=== PATIENT | female | born 1970 | race African-American/Black ===

== ENCOUNTER 2016-07-02 21:53 | Emergency (ER) | payer MEDICARE, OTHER ==
[2016-07-02] MEDS ORDERED: predniSONE 20 MG TAB ONE (22:19)
--- NOTE | 2016-07-03 00:41 | ERRECORD ---
[facility] EMERGENCY RECORD PAST MEDICAL HISTORY (22:09 KSPL) MEDICAL HISTORY: Flu vaccine not up to date, Tetanus immunization up to date, Pneumococcal vaccine not up to date, Notes: high cholesterol, , Past medical history includes history of hypertension. Past medical history is not significant. migraine and chest pain. Stress test performed last year with 20% blockage per heart cath. FEMALE SURGICAL HISTORY: Surgical history of cholecystectomy, laparoscopic, Surgical history of hysterectomy, lung sx 1999, left knee sx, hernia repair. RT TOE SX, LT BREAST LUMPECTOMY. RT CARPAL TUNNEL SURGERY. LEFT WRIST CYST REMOVAL. PSYCHIATRIC HISTORY: Psychiatric history includes, bipolar disorder, MANIC DEPRESSION.ANXIETY. PANIC ATTACKS. SOCIAL HISTORY: Patient denies alcohol use, Patient is a former drug user, Patient is a former tobacco user, smoked cigarettes, Patient quit smoking in the past year. FAMILY HISTORY: Maternal history of diabetes, Type II, Maternal history of hypertension. Family istory is not significant. KNOWN ALLERGIES traMADol CURRENT MEDICATIONS (22:09 KSPL) diltiazem HCl: CAPSULE, EXT RELEASE 24 HR : Strength - 120 mg : ORAL Patient Dose: unk mg Oral once a day. Xanax: TABLET : Strength - 1 mg : ORAL Patient Dose: unk mg Oral As Needed. Dexilant: CAPSULE, DELAYED RELEASE, BIPHASIC : Strength - 30 mg : ORAL Patient Dose: unk mg Oral. aspirin: TABLET : Strength - 81 mg : ORAL Patient Dose: unk mg Oral. Darvon: CAPSULE : Strength - 65 mg : ORAL Patient Dose: unk mg Oral once a day. Lipitor: TABLET : Strength - 10 mg : ORAL Patient Dose: unk mg. traZODone: TABLET : Strength - 100 mg : ORAL Patient Dose: unk. VITAL SIGNS (22:05 KSPL) VITAL SIGNS: BP: 126/101, Pulse: 88, Resp: 18, Temp: 98.1 (Oral), Pain: 8, O2 sat: 96 on Room Air, Time: 07/02/2016 22:05. &a-1R&a+25V*p+0X*[id number]*c202B*c15G*c2P*p-0X&a-25V&a+1R Name: Angelina Monroy Jordi : 1970 F45 MedRec: [id number] AcctNum: [id number] Prepared: [place] Jul 02, 2016 22:25 by Interface Page 1 of 2 pMD [facility] EMERGENCY RECORD MEDICATION ADMINISTRATION SUMMARY Drug Name: Atarax, Dose Ordered: 25 mg, Route: Oral, Status: Given, Time: 22:22 07/02/2016, Drug Name: predniSONE oral, Dose Ordered: 60 mg, Route: Oral, Status: Given, Time: 22:07/02/2016, Detailed record available in Medication Service section. PROBLEM LIST No recorded problems DIAGNOSIS (22:10 JPIP) FINAL: PRIMARY: insect bite local reaction left upper arm. PRESCRIPTION (22:09 JPIP) Atarax: TABLET : 25 mg : ORAL : Quantity: 1 Unit: tab(s) Route: ORAL Schedule: 1 to 2 times a day Dispense: 20 May substitute. Refills: No Refills . NOTES: as needed for itching No refills. DISPOSITION PATIENT: Disposition Type: Discharge, Disposition: *Discharge Home, Condition: Good. (22:10 JPIP) Patient left the department. (22:23 KSPL) Bueno: JPIP=DO Siegel Joseph KSPL=FAUSTINO Rios, Christina &a-1R&a+25V*p+0X*[id number]*c202B*c15G*c2P*p-0X&a-25V&a+1R Name: Angelina Monroy : 1970 F45 MedRec: [id number] AcctNum: [id number] Prepared: [place] Jul 02, 2016 22:25 by Interface Page 2 of 2 pMD MTDD
--- NOTE | 2016-07-03 00:53 | PICIS ---
[facility] EMERGENCY RECORD TRIAGE (SunJul 02, 2016 22:07 KSPL) TRIAGE NOTES: welt to L upper arm, burning sensation, awoke pt from sleep. (SunJul 02, 2016 22:07 KSPL) PATIENT: NAME: Angelina Monroy, AGE: 45, GENDER: female, : Sun1970, TIME OF GREET: SunJul 02, 2016 21:54, PREFERRED LANGUAGE: Maltese, ETHNICITY: Not or , ECODE BILLING MAP: [facility], SSN: [id number], Zip Code: [address], KG WEIGHT: 87.09, , , PERSON ID: [id number], PAYMENT: X Medicare, PCP: MD Iqbal Kyle. ([place] Jul 02, 2016 22:07 KSPL) PHONE: . (22:15) COMPLAINT: bite. ([place] Jul 02, 2016 22:07 KSPL) ADMISSION: URGENCY: 5 Fast Track, ADMISSION SOURCE: Home, TRANSPORT: CAR, BED: TRIAGE. ([place] Jul 02, 2016 22:07 KSPL) SIRS SCORING: Heart Rate 55-109 (0), Temp range 96.8-101.1 (0), respiratory rate 12-24 (0), Mental Status altered: no (0), Infection or Suspected Infection: No. (22:09 KSPL) TRIAGE SCREENING: Patient denies suicidal ideation, Patient denies presence of domestic violence. (22:09 KSPL) TREATMENTS IN PROGRESS: Treatments given Prehospital: none. (22:09 KSPL) PROVIDERS: TRIAGE NURSE: Christina Rios RN. ([place] Jul 02, 2016 22:07 KSPL) VITAL SIGNS: BP 126/101, Pulse 88, Resp 18, Temp 98.1, (Oral), Pain 8, O2 Sat 96, on Room Air, Time 07/02/2016 22:05. (22:05 KSPL) PREVIOUS VISIT ALLERGIES: acetaminophen-codeine, traMADol. ([place] Jul 02, 2016 22:07 KSPL) acetaminophen-codeine, traMADol. (22:09 KSPL) KNOWN ALLERGIES traMADol CURRENT MEDICATIONS (22:09 KSPL) diltiazem HCl: CAPSULE, EXT RELEASE 24 HR : Strength - 120 mg : ORAL Patient Dose: unk mg Oral once a day. Xanax: TABLET : Strength - 1 mg : ORAL Patient Dose: unk mg Oral As Needed. Dexilant: CAPSULE, DELAYED RELEASE, BIPHASIC : Strength - 30 mg : ORAL Patient Dose: unk mg Oral. aspirin: TABLET : Strength - 81 mg : ORAL Patient Dose: unk mg Oral. Darvon: CAPSULE : Strength - 65 mg : ORAL Patient Dose: unk mg Oral once a day. Lipitor: TABLET : Strength - 10 mg : ORAL &a-1R&a+25V*p+0X*r5080Y*c202B*c15G*c2P*p-0X&a-25V&a+1R Name: Angelina Monroy : 1970 F45 MedRec: [id number] AcctNum: [id number] Prepared: [place] Jul 02, 2016 22:31 by Interface Page 1 of 4 pMD [facility] EMERGENCY RECORD Patient Dose: unk mg. traZODone: TABLET : Strength - 100 mg : ORAL Patient Dose: unk. VITAL SIGNS (22:05 KSPL) VITAL SIGNS: BP: 126/101, Pulse: 88, Resp: 18, Temp: 98.1 (Oral), Pain: 8, O2 sat: 96 on Room Air, Time: 07/02/2016 22:05. NURSING ASSESSMENT: SKIN (22:09 KSPL) CONSTITUTIONAL: Complex assessment performed, Patient arrives ambulatory, Gait steady, History obtained from patient, Patient appears comfortable, Patient cooperative, Patient alert, Oriented to person, place and time, Skin warm, Skin dry, Skin normal in color, Mucous membranes pink, Mucous membranes moist, Patient is well-groomed, Patient complains of bite. PAIN: burning pain, Onset of pain 07/02/2016 21:09, on a scale 0-10 patient rates pain as 8, Nothing has been tried to alleviate the pain. SKIN: Notes: Welt to L upper arm. SAFETY: Side rails up, Cart/Stretcher in lowest position, Family at bedside, Call light within reach, Hospital ID band on, Patient in view of the nursing station. NURSING PROCEDURE: DISCHARGE NOTE (22:24 KSPL) DISCHARGE: Patient discharged to home, ambulating without assistance, family driving, accompanied by //partner, Summary of Care printed/ provided, Patient requested and was provided an electronic copy of Discharge Instructions, Transition record given to patient, Discharge instructions given to patient, Simple or moderate discharge teaching performed, Prescriptions given and instructions on side effects given, Name of prescription(s) given: atarax, Medication reconciliation form given, Above person(s) verbalized understanding of discharge instructions and follow-up care, Patient treated and evaluated by physician. BELONGINGS: Belongings and valuables with patient at time of discharge include:, Belongings remain with patient, Valuables remain with patient. SAFETY: Side rails up, Cart/Stretcher in lowest position, Family at bedside, Call light within reach, Hospital ID band on, Patient in view of the nursing station. MEDICATION ADMINISTRATION SUMMARY Drug Name: Atarax, Dose Ordered: 25 mg, Route: Oral, Status: Given, Time: 22:07/02/2016, Drug Name: predniSONE oral, Dose Ordered: 60 mg, Route: Oral, Status: Given, Time: 22:07/02/2016, Detailed record available in Medication Service section. &a-1R&a+25V*p+0X*[id number]*c202B*c15G*c2P*p-0X&a-25V&a+1R Name: Angelina Monroy : 1970 F45 MedRec: [id number] AcctNum: [id number] Prepared: [place] Jul 02, 2016 22:31 by Interface Page 2 of 4 pMD [facility] EMERGENCY RECORD MEDICATION SERVICE (22: [facility]) Atarax: Order: Atarax (hydroxyzine HCl) - Dose: 25 mg : Oral Schedule: Now Ordered by: Nikita Siegel DO Entered by: DO [place] Gleason Jul 02, 2016 22:08 , Acknowledged by: FAUSTINO Troncoso Jul 02, 2016 22:18 Documented as given by: FAUSTINO Troncoso Jul 02, 2016 22:22 Patient, Medication, Dose, Route and Time verified prior to administration. Amount given: 25 mg, Site: Medication administered P.O., Patient appears Awake and alert- acceptable, Correct patient, time, route, dose and medication confirmed prior to administration, Patient advised of actions and side-effects prior to administration, Allergies confirmed and medications reviewed prior to administration, Patient in position of comfort, Side rails up, Cart in lowest position, Family at bedside, Call light in reach. predniSONE oral: Order: predniSONE oral (prednisone) - Dose: 60 mg : Oral Schedule: Now Ordered by: Nikita Siegel DO Entered by: DO Socorro Gleason Jul 02, 2016 22:09 , Acknowledged by: FAUSTINO Troncoso Jul 02, 2016 22:18 Documented as given by: FAUSTINO Troncoso Jul 02, 2016 22:22 Patient, Medication, Dose, Route and Time verified prior to administration. Amount given: 60 mg, Site: Medication administered P.O., Patient appears Awake and alert- acceptable, Correct patient, time, route, dose and medication confirmed prior to administration, Patient advised of actions and side-effects prior to administration, Allergies confirmed and medications reviewed prior to administration, Patient in position of comfort, Side rails up, Cart in lowest position, Family at bedside, Call light in reach. PAST MEDICAL HISTORY (22:09 KSPL) MEDICAL HISTORY: Flu vaccine not up to date, Tetanus immunization up to date, Pneumococcal vaccine not up to date, Notes: high cholesterol, , Past medical history includes history of hypertension. Past medical history is not significant. migraine and chest pain. Stress test performed last year with 20% blockage per heart cath. FEMALE SURGICAL HISTORY: Surgical history of cholecystectomy, laparoscopic, Surgical history of hysterectomy, lung sx 1999, left knee sx, hernia repair. RT TOE SX, LT BREAST LUMPECTOMY. RT CARPAL TUNNEL SURGERY. LEFT WRIST CYST REMOVAL. PSYCHIATRIC HISTORY: Psychiatric history includes, bipolar disorder, MANIC DEPRESSION.ANXIETY. PANIC ATTACKS. SOCIAL HISTORY: Patient denies alcohol use, Patient is a former drug user, Patient is a former tobacco user, smoked cigarettes, Patient quit smoking in the past year. &a-1R&a+25V*p+0X*[id number]*c202B*c15G*c2P*p-0X&a-25V&a+1R Name: Angelina Monroy : 1970 F45 MedRec: [id number] AcctNum: [id number] Prepared: [place] Jul 02, 2016 22:31 by Interface Page 3 of 4 pMD [facility] EMERGENCY RECORD FAMILY HISTORY: Maternal history of diabetes, Type II, Maternal history of hypertension. Family istory is not significant. EVENTS TRANSFER: Triage to Emergency Triage. (22:07 KSPL) Emergency Triage to Emergency Room -03. (22:08 KSPL) Removed from Emergency Emergency Room -03. (22:23 KSPL) PROBLEM LIST No recorded problems DIAGNOSIS (22:10 JPIP) FINAL: PRIMARY: insect bite local reaction left upper arm. DISPOSITION PATIENT: Disposition Type: Discharge, Disposition: *Discharge Home, Condition: Good. (22:10 JPIP) Patient left the department. (22:23 KSPL) INSTRUCTION (22:09 JPIP) DISCHARGE: ALLERGIC REACTION, INSECT (LOCAL). FOLLOWUP: MD Farida, [facility], [address] [place] [address], . SPECIAL: Follow up with Primary Care Physician within 72 hours Return to the Emergency Department for increased symptoms problems or concerns. PRESCRIPTION (22:09 JPIP) Atarax: TABLET : 25 mg : ORAL : Quantity: 1 Unit: tab(s) Route: ORAL Schedule: 1 to 2 times a day Dispense: 20 May substitute. Refills: No Refills . NOTES: as needed for itching No refills. IMAGING (22:26 KSPL) *DISCHARGE INSTRUCTIONS RECEIPT: Image captured from scanner. *SUPPLY CHARGE SHEET: Image captured from scanner. Bueno: DANIELE=DO Siegel Joseph KSPL=FAUSTINO Rios, Christina &a-1R&a+25V*p+0X*[id number]*c202B*c15G*c2P*p-0X&a-25V&a+1R Name: Angelina Monroy : 1970 F45 MedRec: [id number] AcctNum: [id number] Prepared: [place] Jul 02, 2016 22:31 by Interface Page 4 of 4 pMD MTDD
== END 2016-07-02 22:24 | disposition home or self-care (01) ==
LOC: BURERS 21:53
DX: S40.862A Insect bite (nonvenomous) of left upper arm, initial encounter (principal); I10 Essential (primary) hypertension
CPT/HCPCS: 99282; J7506

== ENCOUNTER 2016-07-03 10:45 | Outpatient (CLI) | payer MEDICARE, MEDICAID ==
[2016-07-03 13:06] LABS: ALT (SGPT) 18 U/L (0-55); AST (SGOT) 14 U/L (5-34); Alkaline Phosphatase 81 U/L (40-150); Anion Gap 16 mmol/L (10-20); BUN (Urea Nitrogen) 15 mg/dL (7.0-18.7); Bilirubin, Total 0.3 mg/dL (0.2-1.2); Calc. Creatinine Clearance 0 mL/min (70-130); Calcium 10.1 mg/dL (7.8-10.44); Carbon Dioxide 22 mmol/L (22-29); Chloride 109 mmol/L (98-107); Estimated GFR-MDRD 84; Globulin 3.1 g/dL (2.4-3.5); LDL Cholesterol, Calculated 108 mg/dL; Protein, Total 7.9 g/dL (6.0-8.3)
[2016-07-03 13:33] LABS: #Lymphocytes 1.2 thou/uL (1.20-3.40); #Monocytes 0.1 thou/uL (0.11-0.59); #Neutrophils 6.4 thou/uL (1.40-6.50); %Basophils 0.5 % (0.0-1.0); %Monocytes 1.1 % (0.0-10.0); Hematocrit 39.7 % (36.0-47.0); Mean Platelet Volume 5.8 fL (7.4-10.4); Red Blood Cell (RBC) Count 4.64 mill/uL (4.20-5.40); White Blood Cell (WBC) Count 7.7 thou/uL (4.8-10.8)
[2016-07-03 14:14] LABS: Hemoglobin A1c 5.7 % (4.0-6.0)
== END 2016-07-03 10:46 | disposition home or self-care (01) ==
LOC: HPCALD 10:45
PROVIDERS: ATTEND Family Medicine
DX: Z11.4 Encounter for screening for human immunodeficiency virus [HIV] (principal); R73.9 Hyperglycemia, unspecified; I10 Essential (primary) hypertension; E78.5 Hyperlipidemia, unspecified; R53.83 Other fatigue; E55.9 Vitamin D deficiency, unspecified
CPT/HCPCS: 36415; 80053; 80061; 82306; 82607; 83036; 84443; 85025; 87389

== ENCOUNTER 2016-07-04 11:51 | Outpatient (CLI) | payer MEDICARE, OTHER ==
[2016-07-04 18:18] LABS: Free T3 2.51 pg/mL (1.71-3.71)
== END 2016-07-04 11:52 | disposition home or self-care (01) ==
LOC: HPCALD 11:51
PROVIDERS: ATTEND Family Medicine
DX: R53.83 Other fatigue (principal)
CPT/HCPCS: 84439; 84481

== ENCOUNTER 2016-08-06 09:10 | Emergency (ER) | payer MEDICARE | END 2016-08-06 09:40 | disposition home or self-care (01) | LOC: BURERS 09:10 | DX: B34.9 Viral infection, unspecified (principal); E78.00 Pure hypercholesterolemia, unspecified; I10 Essential (primary) hypertension; F31.9 Bipolar disorder, unspecified; F41.9 Anxiety disorder, unspecified; Z79.899 Other long term (current) drug therapy; Z79.82 Long term (current) use of aspirin; Z87.891 Personal history of nicotine dependence | CPT/HCPCS: 99283 ==

== ENCOUNTER 2016-08-26 09:39 | Emergency (ER) | payer MEDICARE, OTHER ==
[2016-08-26 10:28] LABS: CKMB 0.5 ng/mL (0-6.6); Troponin I Less than 0.010 ng/mL (< 0.028)
[2016-08-26 10:29] LABS: Anion Gap 13 mmol/L (10-20); BUN (Urea Nitrogen) 17 mg/dL (7.0-18.7); Calc. Creatinine Clearance 0 mL/min (70-130); Carbon Dioxide 26 mmol/L (22-29); Chloride 105 mmol/L (98-107); Estimated GFR-MDRD 83; Glucose 163 mg/dL (70-105); Potassium 3.1 mmol/L (3.5-5.1); Sodium 141 mmol/L (136-145)
[2016-08-26 10:37] LABS: Hemoglobin 13.4 g/dL (12.0-16.0); Mean Corpuscular HGB CONC 33.3 g/dL (32.0-36.0); Mean Corpuscular Hemoglobin 27.6 pg (27.0-31.0); Mean Platelet Volume 7.2 fL (7.4-10.4); Platelet Count 329 thou/uL (130-400); RBC Distribution Width 12.8 % (11.5-14.5); Red Blood Cell (RBC) Count 4.84 mill/uL (4.20-5.40); White Blood Cell (WBC) Count 11.9 thou/uL (4.8-10.8)
[2016-08-26 10:39] LABS: Band 3 % (5-11); Eosinophils 1 % (0-10); Lymphocytes 44 % (21-51); MDiff Complete? YES; Monocytes 6 % (0-10); Neutrophil 45 % (42-75); PLT Morphology Comment Appears Adequate; RBC Morphology Normal
[2016-08-26] MEDS ORDERED: Azithromycin 250 MG TAB ONE (11:00)
[2016-08-26] MEDS ORDERED: Potassium Chloride 20 MEQ TAB ONE (11:00)
--- NOTE | 2016-08-26 13:29 | RAD ---
PA AND LATERAL CHEST: COMPARISON: 11/17/15 study. HISTORY: Chest pain and cough. FINDINGS: Heart size and mediastinum within normal limits. Lungs are clear of any focal infiltrative process. IMPRESSION: No active intrathoracic disease. POS: [facility]
== END 2016-08-26 11:03 | disposition home or self-care (01) ==
LOC: BURERS 09:39
DX: J20.9 Acute bronchitis, unspecified (principal); E78.00 Pure hypercholesterolemia, unspecified; I10 Essential (primary) hypertension; F31.9 Bipolar disorder, unspecified; Z87.891 Personal history of nicotine dependence; Z79.82 Long term (current) use of aspirin; Z79.899 Other long term (current) drug therapy
CPT/HCPCS: 36415; 71020; 80048; 82553; 84484; 85025; 93005

== ENCOUNTER 2016-08-31 09:19 | Outpatient (CLI) | payer MEDICARE, OTHER ==
[2016-08-31 11:53] LABS: Anion Gap 13 mmol/L (10-20); BUN (Urea Nitrogen) 12 mg/dL (7.0-18.7); Calc. Creatinine Clearance 0 mL/min (70-130); Calcium 9.7 mg/dL (7.8-10.44); Carbon Dioxide 28 mmol/L (22-29); Chloride 105 mmol/L (98-107); Estimated GFR-MDRD 79; Glucose 100 mg/dL (70-105); Potassium 4.5 mmol/L (3.5-5.1); Sodium 141 mmol/L (136-145)
== END 2016-08-31 09:20 | disposition home or self-care (01) ==
LOC: HPCALD 09:19
PROVIDERS: ATTEND Family Medicine
DX: E87.6 Hypokalemia (principal); E55.9 Vitamin D deficiency, unspecified
CPT/HCPCS: 36415; 80048; 82306

== ENCOUNTER 2016-10-18 20:31 | Emergency (ER) | payer MEDICARE, OTHER ==
--- NOTE | 2016-10-18 22:06 | RAD ---
LEFT ANKLE THREE VIEWS 10/18/16 Mild lateral swelling is present. No underlying fracture was appreciated. The ankle joint appears in tact. IMPRESSION: No acute findings. POS: HOME
== END 2016-10-18 21:08 | disposition home or self-care (01) ==
LOC: BURERS 20:31
DX: S93.402A Sprain of unspecified ligament of left ankle, initial encounter (principal); I10 Essential (primary) hypertension; F31.9 Bipolar disorder, unspecified; Z87.891 Personal history of nicotine dependence; X50.1XXA Overexertion from prolonged static or awkward postures, initial encounter

== ENCOUNTER 2017-01-18 10:17 | Outpatient (CLI) | payer MEDICAID, MEDICARE, OTHER ==
[2017-01-18 10:41] LABS: #Basophils 0.1 thou/uL (0.0-0.2); #Eosinphils 0.1 thou/uL (0.0-0.7); #Lymphocytes 3.8 thou/uL (1.20-3.40); #Monocytes 0.6 thou/uL (0.11-0.59); #Neutrophils 3.9 thou/uL (1.40-6.50); %Eosinophils 1.2 % (0.0-10.0); %Lymphocytes 45.4 % (21.0-51.0); %Monocytes 6.5 % (0.0-10.0); %Neutrophils 45.9 % (42.0-75.0); Hemoglobin 12.9 g/dL (12.0-16.0); Mean Corpuscular HGB CONC 33.7 g/dL (32.0-36.0); Mean Platelet Volume 6.8 fL (7.4-10.4); Platelet Count 336 thou/uL (130-400); RBC Distribution Width 14.7 % (11.5-14.5); Red Blood Cell (RBC) Count 4.62 mill/uL (4.20-5.40); White Blood Cell (WBC) Count 8.4 thou/uL (4.8-10.8)
[2017-01-18 10:56] LABS: ALT (SGPT) 37 U/L (8-55); AST (SGOT) 23 U/L (5-34); Albumin 4.1 g/dL (3.5-5.0); Alkaline Phosphatase 85 U/L (40-150); Anion Gap 12 mmol/L (10-20); BUN (Urea Nitrogen) 11 mg/dL (7.0-18.7); Bilirubin, Total 0.2 mg/dL (0.2-1.2); Calc. Creatinine Clearance 0 mL/min (70-130); Calcium 9.1 mg/dL (7.8-10.44); Cardiac Risk 3.5 (Less than 4.5); Chloride 110 mmol/L (98-107); Cholesterol 172 mg/dl (< 200 Desired); Estimated GFR-MDRD 90; Globulin 2.9 g/dL (2.4-3.5); Glucose 111 mg/dL (70-105); HDL Cholesterol 49 mg/dL (>60 Neg Risk); LDL Cholesterol, Calculated 103 mg/dL; Potassium 4.6 mmol/L (3.5-5.1); Sodium 144 mmol/L (136-145); Triglycerides 99 mg/dL (Less than 150)
[2017-01-18 13:01] LABS: Carbon Dioxide 21 mmol/L (22-29)
== END 2017-01-18 10:18 | disposition home or self-care (01) ==
LOC: HPCALD 10:17
PROVIDERS: ATTEND Family Medicine
DX: E78.00 Pure hypercholesterolemia, unspecified (principal); I10 Essential (primary) hypertension
CPT/HCPCS: 36415; 80053; 80061; 85025

== ENCOUNTER 2017-04-15 15:16 | Emergency (ER) | payer MEDICARE, OTHER ==
[2017-04-15 15:52] LABS: #Basophils 0.1 thou/uL (0.0-0.2); #Eosinphils 0.1 thou/uL (0.0-0.7); #Lymphocytes 3.3 thou/uL (1.20-3.40); #Monocytes 0.5 thou/uL (0.11-0.59); #Neutrophils 3.7 thou/uL (1.40-6.50); %Basophils 1.7 % (0.0-1.0); %Eosinophils 1.1 % (0.0-10.0); %Lymphocytes 42.7 % (21.0-51.0); %Monocytes 6.3 % (0.0-10.0); %Neutrophils 48.2 % (42.0-75.0); Hemoglobin 12.1 g/dL (12.0-16.0); Mean Corpuscular HGB CONC 32.2 g/dL (32.0-36.0); Mean Corpuscular Hemoglobin 27.5 pg (27.0-31.0); Mean Corpuscular Volume 85.5 fl (81.0-99.0); Mean Platelet Volume 6.6 fL (7.4-10.4); Platelet Count 281 thou/uL (130-400); RBC Distribution Width 13.9 % (11.5-14.5); White Blood Cell (WBC) Count 7.7 thou/uL (4.8-10.8)
--- NOTE | 2017-04-15 15:59 | RAD ---
CHEST ONE VIEW: History: Chest pain. Comparison: 12-07-14 FINDINGS: Cardiac silhouette is magnified by projection. Pulmonary vasculature is unremarkable. Mediastinum is midline. There is no lobar consolidation or evidence of pneumothorax. sandblaster supervisor leads overlie the chest. IMPRESSION: 1. No active cardiopulmonary abnormalities are demonstrated. POS: [facility]
[2017-04-15 16:00] LABS: INR-International Normal Ratio 0.9; PTT 28.2 SEC (22.9-36.1); Prothrombin Time 12.5 SEC (12.0-14.7)
[2017-04-15 16:09] LABS: ALT (SGPT) 24 U/L (8-55); AST (SGOT) 20 U/L (5-34); Albumin 4.2 g/dL (3.5-5.0); Alkaline Phosphatase 87 U/L (40-150); Anion Gap 15 mmol/L (10-20); BUN (Urea Nitrogen) 16 mg/dL (7.0-18.7); Bilirubin, Total 0.3 mg/dL (0.2-1.2); Calc. Creatinine Clearance 0 mL/min (70-130); Calcium 9.6 mg/dL (7.8-10.44); Carbon Dioxide 23 mmol/L (22-29); Chloride 107 mmol/L (98-107); Estimated GFR-MDRD 90; Globulin 3.3 g/dL (2.4-3.5); Glucose 108 mg/dL (70-105); Potassium 3.8 mmol/L (3.5-5.1); Protein, Total 7.5 g/dL (6.0-8.3); Sodium 141 mmol/L (136-145)
[2017-04-15 16:11] LABS: CKMB 0.9 ng/mL (0-6.6)
[2017-04-15] MEDS ORDERED: Ketorolac Tromethamine 30 MG/ML VIAL ONE (17:09)
[2017-04-15 18:39] LABS: Troponin I 0.012 ng/mL (< 0.028)
== END 2017-04-15 19:10 | disposition home or self-care (01) ==
LOC: BURERS 15:16
DX: S46.912A Strain of unspecified muscle, fascia and tendon at shoulder and upper arm level, left arm, initial encounter (principal); I10 Essential (primary) hypertension; F31.9 Bipolar disorder, unspecified; Z87.891 Personal history of nicotine dependence; Z79.899 Other long term (current) drug therapy; Z79.82 Long term (current) use of aspirin; X50.9XXA Other and unspecified overexertion or strenuous movements or postures, initial encounter
CPT/HCPCS: 71010; 80053; 82553; 84484; 85025; 85610; 85730; 93005; 94760; 96374; 99406; J1885

== ENCOUNTER 2017-06-08 08:44 | Outpatient (CLI) | payer MEDICARE, OTHER ==
--- NOTE | 2017-06-12 08:07 | ULT ---
ULTRASOUND ABDOMEN: HISTORY: R19.0 (abdominal swelling). COMPARISON: None. TECHNIQUE: Real-time Cha-scale color Doppler and spectral analysis of the abdomen is performed. FINDINGS: The pancreas is not swell seen. The liver measures 17 cm in length. The portal vein is patent. The common bile duct measures 7 mm. The right kidney measures 10.7 x 5.3 x 4.9 cm, with what appears to be a prominent column of Burke i nterpolar right kidney. This can be seen on the CT examination from 2014. The spleen measures 10 cm in length. The left kidney measures 10.2 x 5.5 x 5.1 cm. The gallbladder has been removed. The visualized portions of the aorta and IVC are unremarkable. IMPRESSION: 1. Mild increased hepatic echotexture, which can be seen with steatosis or hepatocellular disease. 2. Likely a column of Burke in the interpolar right kidney and not a mass. A follow-up examination in six months is recommended. POS: [facility]
== END 2017-06-08 08:45 | disposition home or self-care (01) ==
LOC: BURULT 08:44
PROVIDERS: ATTEND Family Medicine
DX: R19.00 Intra-abdominal and pelvic swelling, mass and lump, unspecified site (principal)
CPT/HCPCS: 76700

== ENCOUNTER 2017-12-06 10:40 | Emergency (ER) | payer MEDICARE, OTHER ==
[2017-12-06] MEDS ORDERED: Ondansetron ODT 4 MG TAB ONE (10:59)
[2017-12-06] MEDS ORDERED: Ketorolac Tromethamine 30 MG/ML VIAL ONE (11:57)
--- NOTE | 2017-12-06 12:19 | CT ---
CT ABDOMEN AND PELVIS NONCONTRAST: Date: 12/06/17 HISTORY: Right flank pain. COMPARISON: 10/29/14. FINDINGS: Each renal collecting system, ureter, and urinary bladder are decompressed with stone evident. Lack of contrast limits evaluation for other abnormalities. Gallbladder is surgically absent. No evid ence of bowel obstruction or inflammation. IMPRESSION: 1. No CT evidence of urinary tract obstruction or calcification. 2. Status post cholecystectomy. POS: [facility]
== END 2017-12-06 12:10 | disposition home or self-care (01) ==
LOC: BURERS 10:40
DX: R10.31 Right lower quadrant pain (principal); E11.9 Type 2 diabetes mellitus without complications; K21.9 Gastro-esophageal reflux disease without esophagitis; I10 Essential (primary) hypertension; G43.909 Migraine, unspecified, not intractable, without status migrainosus; F41.9 Anxiety disorder, unspecified; F31.9 Bipolar disorder, unspecified; Z79.899 Other long term (current) drug therapy; Z79.82 Long term (current) use of aspirin
CPT/HCPCS: 74176; 96372; J1885; Q0162

== ENCOUNTER 2018-04-07 16:23 | Emergency (ER) | payer MEDICARE, OTHER ==
--- NOTE | 2018-04-07 22:19 | RAD ---
LEFT ANKLE THREE VIEWS: Date: 04-07-18 FINDINGS: Marked lateral swelling is present. No major fracture was identified. A small rounded bony density is seen at the tip of the lateral malleolus, obviously not an acute finding. On the AP view there was a question rather there could be the tinniest of avulsions from the tip of the lateral malleolus, but the finding is not definite. There is certainly no major fracture here. The articular surfaces are no rmal in appearance. IMPRESSION: Marked lateral swelling. See comments above. POS: HOME
== END 2018-04-07 16:53 | disposition home or self-care (01) ==
LOC: BURERS 16:23
DX: S93.402A Sprain of unspecified ligament of left ankle, initial encounter (principal); I10 Essential (primary) hypertension; G43.909 Migraine, unspecified, not intractable, without status migrainosus; F31.9 Bipolar disorder, unspecified; X50.1XXA Overexertion from prolonged static or awkward postures, initial encounter

== ENCOUNTER 2018-04-10 08:53 | Outpatient (CLI) | payer MEDICARE, OTHER ==
--- NOTE | 2018-04-10 11:48 | ULT ---
BILATERAL RENAL ULTRASOUND: Date: 04/10/18 HISTORY: Abnormal finding on imaging of right kidney. FINDINGS: Comparison made with exam of 06/08/17. Both kidneys measure 10.6 cm in length. No hydronephrosis seen on either side. The probable prominent column of Burke in the interpolar right kidney is again noted and essentially unchanged. No definit e renal mass or hydronephrosis is seen on either side. The urinary bladder is unremarkable. IMPRESSION: Findings consistent with prominent column of Burke in the interpolar right kidney, stable since 05/12 02/25. POS: [facility]
== END 2018-04-10 08:54 | disposition home or self-care (01) ==
LOC: BURULT 08:53
PROVIDERS: ATTEND Family Medicine
DX: R93.421 Abnormal radiologic findings on diagnostic imaging of right kidney (principal)
CPT/HCPCS: 76770

== ENCOUNTER 2018-08-01 19:04 | Emergency (ER) | payer MEDICARE, MEDICAID ==
[2018-08-01] MEDS ORDERED: cloNIDine 0.1 MG TAB ONE (19:41)
== END 2018-08-01 20:20 | disposition home or self-care (01) ==
LOC: BURERS 19:04
DX: I10 Essential (primary) hypertension (principal); M79.10 Myalgia, unspecified site; E11.9 Type 2 diabetes mellitus without complications; K21.9 Gastro-esophageal reflux disease without esophagitis; E78.5 Hyperlipidemia, unspecified; G43.909 Migraine, unspecified, not intractable, without status migrainosus; F41.9 Anxiety disorder, unspecified; F31.9 Bipolar disorder, unspecified; Z79.899 Other long term (current) drug therapy; Z79.82 Long term (current) use of aspirin
CPT/HCPCS: 99283

== ENCOUNTER 2018-10-09 07:04 | Emergency (ER) | payer MEDICARE, OTHER | END 2018-10-09 07:33 | disposition home or self-care (01) | LOC: BURERS 07:04 | DX: L50.0 Allergic urticaria (principal); I10 Essential (primary) hypertension; K21.9 Gastro-esophageal reflux disease without esophagitis; E78.5 Hyperlipidemia, unspecified; G43.909 Migraine, unspecified, not intractable, without status migrainosus; F41.9 Anxiety disorder, unspecified | CPT/HCPCS: 99283 ==

== ENCOUNTER 2018-10-18 02:52 | Emergency (ER) | payer MEDICARE, MEDICAID ==
[2018-10-18] MEDS ORDERED: Famotidine 20 MG TAB ONE (03:33)
[2018-10-18] MEDS ORDERED: Lidocaine Viscous Sol 2% 15 ml UD Cup ONE (03:36)
[2018-10-18] MEDS ORDERED: Mag-Al Plus 1200 MG/1200 MG/120 MG/30 ML UDCUP ONE (03:37)
== END 2018-10-18 04:12 | disposition home or self-care (01) ==
LOC: BURERS 02:52
DX: K21.9 Gastro-esophageal reflux disease without esophagitis (principal); E78.5 Hyperlipidemia, unspecified; G43.909 Migraine, unspecified, not intractable, without status migrainosus; F41.9 Anxiety disorder, unspecified; F31.9 Bipolar disorder, unspecified; Z79.899 Other long term (current) drug therapy
CPT/HCPCS: 36415; 84484

== ENCOUNTER 2018-10-19 22:35 | Emergency (ER) | payer MEDICARE, MEDICAID ==
[2018-10-19] MEDS ORDERED: Mag-Al Plus 1200 MG/1200 MG/120 MG/30 ML UDCUP ONE (23:14)
[2018-10-19] MEDS ORDERED: Lidocaine Viscous Sol 2% 15 ml UD Cup ONE (23:14)
== END 2018-10-19 23:28 | disposition home or self-care (01) ==
LOC: BURERS 22:35
DX: K22.4 Dyskinesia of esophagus (principal); E78.5 Hyperlipidemia, unspecified; G43.909 Migraine, unspecified, not intractable, without status migrainosus; I10 Essential (primary) hypertension; F41.0 Panic disorder [episodic paroxysmal anxiety]; Z79.899 Other long term (current) drug therapy; Z79.82 Long term (current) use of aspirin; Z79.891 Long term (current) use of opiate analgesic
CPT/HCPCS: 99283

== ENCOUNTER 2019-02-22 08:50 | Emergency (ER) | payer MEDICARE, OTHER ==
[2019-02-22] MEDS ORDERED: Mag-Al Plus 1200 MG/1200 MG/120 MG/30 ML UDCUP ONE (09:10)
[2019-02-22] MEDS ORDERED: Lidocaine Viscous Sol 2% 15 ml UD Cup ONE (09:10)
== END 2019-02-22 09:28 | disposition home or self-care (01) ==
LOC: BURERS 08:50
DX: K21.9 Gastro-esophageal reflux disease without esophagitis (principal); I10 Essential (primary) hypertension; E78.5 Hyperlipidemia, unspecified; E78.00 Pure hypercholesterolemia, unspecified; G43.909 Migraine, unspecified, not intractable, without status migrainosus; K27.9 Peptic ulcer, site unspecified, unspecified as acute or chronic, without hemorrhage or perforation; F41.9 Anxiety disorder, unspecified; F31.9 Bipolar disorder, unspecified; F17.210 Nicotine dependence, cigarettes, uncomplicated; Z79.899 Other long term (current) drug therapy; Z79.82 Long term (current) use of aspirin
CPT/HCPCS: 93005

== ENCOUNTER 2019-07-15 09:36 | Outpatient (CLI) | payer MEDICARE, OTHER ==
--- NOTE | 2019-07-15 16:12 | RAD ---
LUMBAR SPINE THREE VIEWS: 07/15/19 Comparison is made with the prior study of 04/15/15. No fracture are area of bony destruction was seen. The L4-L5 disc space is minimally narrower than it was before which may or may not be significant. The other disc spaces were unremarkable. The SI join ts appear normal. IMPRESSION: Equivocal disc space narrowing at L4-L5. POS: HOME
== END 2019-07-15 09:37 | disposition home or self-care (01) ==
LOC: BURRAD 09:36
PROVIDERS: ATTEND Family Medicine
DX: M54.5 Low back pain (principal); M51.36 Other intervertebral disc degeneration, lumbar region
CPT/HCPCS: 72100

== ENCOUNTER 2022-07-24 16:19 | Emergency (ER) | payer OTHER | END 2022-07-24 17:56 | disposition home or self-care (01) | LOC: BURERS 16:19 | DX: S10.93XA Contusion of unspecified part of neck, initial encounter (principal); K21.9 Gastro-esophageal reflux disease without esophagitis; E78.00 Pure hypercholesterolemia, unspecified; I10 Essential (primary) hypertension; W19.XXXA Unspecified fall, initial encounter; Y93.01 Activity, walking, marching and hiking | CPT/HCPCS: 70450; 70486; 72125 ==

== ENCOUNTER 2022-07-27 05:50 | Emergency (ER) | payer OTHER | END 2022-07-27 08:22 | disposition home or self-care (01) | LOC: BURERS 05:50 | DX: R07.81 Pleurodynia (principal); J06.9 Acute upper respiratory infection, unspecified; I10 Essential (primary) hypertension; K21.9 Gastro-esophageal reflux disease without esophagitis; E78.5 Hyperlipidemia, unspecified; F17.210 Nicotine dependence, cigarettes, uncomplicated | CPT/HCPCS: 71046 ==

== ENCOUNTER 2023-05-28 19:12 | Emergency (ER) | payer MEDICARE, OTHER | END 2023-05-28 19:31 | disposition home or self-care (01) | LOC: BURERS 19:12 | DX: R51.9 Headache, unspecified (principal); I10 Essential (primary) hypertension; K21.9 Gastro-esophageal reflux disease without esophagitis; E78.00 Pure hypercholesterolemia, unspecified; Z79.82 Long term (current) use of aspirin; Z79.899 Other long term (current) drug therapy | CPT/HCPCS: 99283 ==

== ENCOUNTER 2025-01-25 09:06 | Emergency (ER) | payer OTHER, MEDICAID ==
[2025-01-25 09:53] LABS: #Basophils 0.1 thou/uL (0.0-0.2); #Eosinophils 0.3 thou/uL (0.0-0.7); #Lymphocytes 3.1 thou/uL (1.20-3.40); #Monocytes 0.4 thou/uL (0.11-0.59); #Neutrophils 3.0 thou/uL (1.40-6.50); %Basophils 1.7 % (0.0-1.0); %Eosinophils 4.0 % (0.0-10.0); %Lymphocytes 45.2 % (21.0-51.0); %Monocytes 5.7 % (0.0-10.0); %Neutrophils 43.4 % (42.0-75.0); Hematocrit 33.4 % (36.0-47.0); Hemoglobin 11.8 g/dL (12.0-16.0); Mean Corpuscular Hemoglobin 27.8 pg (27.0-31.0); Mean Corpuscular Volume 79.0 fl (78.0-98.0); Platelet Count 350 10x3/uL (130-400); Red Blood Cell (RBC) Count 4.23 mill/uL (4.20-5.40); White Blood Cell (WBC) Count 6.9 10x3/uL (4.8-10.8)
[2025-01-25 10:04] LABS: Anion Gap 15 mmol/L (10-20); BUN (Urea Nitrogen) 8 mg/dL (9.8-20.1); Calc. Creatinine Clearance 0 mL/min (70-130); Calcium 9.0 mg/dL (7.8-10.44); Carbon Dioxide 25 mmol/L (22-29); Chloride 104 mmol/L (98-107); Glucose 98 mg/dL (70-105); Potassium 4.3 mmol/L (3.5-5.1); Sodium 140 mmol/L (136-145)
[2025-01-25] MEDS ORDERED: Ketorolac Tromethamine 30 MG (1 mL) VIAL ONE (10:09)
[2025-01-25] MEDS ORDERED: Orphenadrine Citrate 60 MG/2 ML VIAL ONE (10:09)
== END 2025-01-25 11:00 | disposition home or self-care (01) ==
LOC: BURERS 09:06
DX: M54.50 Low back pain, unspecified (principal); M79.10 Myalgia, unspecified site; I10 Essential (primary) hypertension; K21.9 Gastro-esophageal reflux disease without esophagitis; E78.00 Pure hypercholesterolemia, unspecified; Z79.899 Other long term (current) drug therapy; Z79.82 Long term (current) use of aspirin; Z79.01 Long term (current) use of anticoagulants
CPT/HCPCS: 36415; 71045; 80048; 85025; 96372; J1885; J2360